=== PATIENT | male | born 1960 | race Caucasian/White ===

== ENCOUNTER 2016-10-04 09:07 | Outpatient (CLI) | payer OTHER ==
[2016-10-04 12:29] LABS: Hemoglobin A1c 5.8 % (4.0-6.0)
== END 2016-10-04 09:08 ==
LOC: NAVSJIPCSP 09:07
PROVIDERS: ATTEND Internal Medicine
DX: E78.5 Hyperlipidemia, unspecified (principal); E11.9 Type 2 diabetes mellitus without complications
CPT/HCPCS: 36415; 80061; 83036

== ENCOUNTER 2016-12-26 08:54 | Outpatient (CLI) | payer OTHER ==
[2016-12-26 12:32] LABS: #Eosinphils 0.1 thou/uL (0.0-0.7); #Lymphocytes 1.3 thou/uL (1.20-3.40); #Monocytes 0.4 thou/uL (0.11-0.59); #Neutrophils 2.2 thou/uL (1.40-6.50); %Basophils 0.3 % (0.0-1.0); %Eosinophils 2.1 % (0.0-10.0); %Lymphocytes 32.9 % (21.0-51.0); %Monocytes 10.4 % (0.0-10.0); %Neutrophils 54.2 % (42.0-75.0); Hemoglobin 14.7 g/dL (14.0-18.0); Mean Corpuscular HGB CONC 33.3 g/dL (32.0-36.0); Mean Corpuscular Hemoglobin 30.1 pg (27.0-31.0); Mean Corpuscular Volume 90.3 fl (80.0-94.0); Mean Platelet Volume 6.5 fL (7.4-10.4); Platelet Count 205 thou/uL (130-400); RBC Distribution Width 11.1 % (11.5-14.5); Red Blood Cell (RBC) Count 4.89 mill/uL (4.70-6.10)
[2016-12-26 12:53] LABS: ALT (SGPT) 28 U/L (8-55); AST (SGOT) 25 U/L (5-34); Albumin 4.7 g/dL (3.5-5.0); Alkaline Phosphatase 44 U/L (40-150); Anion Gap 19 mmol/L (10-20); BUN (Urea Nitrogen) 20 mg/dL (8.4-25.7); Bilirubin, Total 0.5 mg/dL (0.2-1.2); Calc. Creatinine Clearance 0 mL/min (70-130); Calcium 10.3 mg/dL (7.8-10.44); Carbon Dioxide 20 mmol/L (22-29); Cardiac Risk 3.7 (Less than 4.5); Chloride 105 mmol/L (98-107); Cholesterol 244 mg/dl (< 200 Desired); Estimated GFR-MDRD 52; Globulin 3.1 g/dL (2.4-3.5); Glucose 134 mg/dL (70-105); HDL Cholesterol 66 mg/dL (>60 Neg Risk); LDL Cholesterol, Calculated 131 mg/dL; Potassium 4.5 mmol/L (3.5-5.1); Protein, Total 7.8 g/dL (6.0-8.3); Sodium 139 mmol/L (136-145); Triglycerides 234 mg/dL (Less than 150)
[2016-12-26 13:23] LABS: Hemoglobin A1c 6.4 % (4.0-6.0)
[2016-12-26 13:32] LABS: Bilirubin Negative (Negative); Blood, Urine Negative (Negative); Clarity Clear (Clear); Glucose, Urine (Dipstick) >=1000 mg/dL (Negative); Leukocyte Negative (Negative); Nitrite Negative (Negative); Protein, Urine (Dipstick) Negative (Neg-Trace); Urobilinogen 0.2 mg/dL (0.2-1.0); pH, Urine 5.5 (5.0-9.0)
[2016-12-26 19:21] LABS: Creatinine, Urine 123.44 mg/dL (63-166); Microalbumin Urine Less than 1.0 mg/dL (0.5-50.0); Microalbumin/Creat Ratio 8.1 mg/g (Less than 30)
== END 2016-12-26 08:55 ==
LOC: NAVSJIPCSP 08:54
PROVIDERS: ATTEND Internal Medicine
DX: Z12.5 Encounter for screening for malignant neoplasm of prostate (principal); E78.5 Hyperlipidemia, unspecified; I11.9 Hypertensive heart disease without heart failure; J45.909 Unspecified asthma, uncomplicated; K21.9 Gastro-esophageal reflux disease without esophagitis; E11.9 Type 2 diabetes mellitus without complications; Z79.899 Other long term (current) drug therapy
CPT/HCPCS: 36415; 80053; 80061; 81003; 82043; 83036; 85025; G0103

== ENCOUNTER 2017-01-04 09:55 | Outpatient (CLI) | payer OTHER ==
[2017-01-04 16:20] LABS: Anion Gap 19 mmol/L (10-20); BUN (Urea Nitrogen) 21 mg/dL (8.4-25.7); Calc. Creatinine Clearance 0 mL/min (70-130); Calcium 10.4 mg/dL (7.8-10.44); Chloride 102 mmol/L (98-107); Estimated GFR-MDRD 52; Glucose 156 mg/dL (70-105); Potassium 4.3 mmol/L (3.5-5.1); Sodium 137 mmol/L (136-145)
[2017-01-04 16:27] LABS: Carbon Dioxide 20 mmol/L (22-29)
== END 2017-01-04 09:56 | disposition home or self-care (01) ==
LOC: NAVSJIPCSP 09:55
PROVIDERS: ATTEND Internal Medicine
DX: N28.9 Disorder of kidney and ureter, unspecified (principal)
CPT/HCPCS: 36415; 80048

== ENCOUNTER 2017-04-10 12:10 | Outpatient (CLI) | payer OTHER ==
[2017-04-10 12:35] LABS: Hemoglobin A1c 6.7 % (4.0-6.0)
[2017-04-10 13:25] LABS: Cardiac Risk 3.6 (Less than 4.5)
== END 2017-04-10 12:11 | disposition home or self-care (01) ==
LOC: NAV LAB 12:10
PROVIDERS: ATTEND Internal Medicine
DX: E11.9 Type 2 diabetes mellitus without complications (principal); E78.5 Hyperlipidemia, unspecified
CPT/HCPCS: 36415; 80061; 83036

== ENCOUNTER 2024-05-28 13:28 | Emergency (ER) | payer OTHER, SELFPAY ==
[2024-05-28] MEDS ORDERED: HYDROcodone/Acetaminophen 5/325 mg Tablet ONE (13:59)
== END 2024-05-28 14:30 | disposition home or self-care (01) ==
LOC: NAV ERS 13:28
DX: M79.601 Pain in right arm (principal); I10 Essential (primary) hypertension
CPT/HCPCS: 99283